=== PATIENT | male | born 1930 | race African-American/Black ===

== ENCOUNTER 2019-08-10 09:22 | Emergency (ER) | payer MEDICARE, OTHER, MEDICAID ==
[~2019-08-10] VITALS: Ht 172.7 cm; Wt 79.0 kg
[2019-08-10] MEDS ORDERED: DIPHENHYDRAMINE 50MG CAPSULE PO ONE (11:00)
[2019-08-10] MEDS ORDERED: ACETAMINOPHEN 325MG TABLET PO ONE (11:00)
[2019-08-10 14:14] VITALS: BP 122/67
== END 2019-08-10 14:43 | disposition left against medical advice (07) ==
LOC: EDBD → ER 09:22
DX: M79.18 Myalgia, other site (principal); I10 Essential (primary) hypertension; M19.90 Unspecified osteoarthritis, unspecified site; F17.210 Nicotine dependence, cigarettes, uncomplicated; Z59.0 Homelessness
CPT/HCPCS: 99283; Q0163

== ENCOUNTER 2019-08-11 13:57 | Inpatient (IN) | payer MEDICARE, MEDICAID ==
[~2019-08-11] VITALS: Ht 165.1 cm; Wt 82.1 kg
[2019-08-11 18:10] LABS: BASOPHILS % 1.1 % (0.0-2.0); EOSINOPHILS % 0.6 % (0.0-5.0); HEMATOCRIT. 32.1 % (42.0-52.0); HEMOGLOBIN. 10.8 g/dL (14.0-18.0); LYMPHOCYTES % 40.3 % (20.0-50.0); MEAN CORPUSCULAR HEMOGLOBIN 28.2 pg (28.0-32.0); MEAN CORPUSCULAR VOLUME 83.8 fL (80.0-94.0); MEAN PLATELET VOLUME 8.7 fl (7.4-10.4); PLATELET 233 x1000/uL (130-400); RED BLOOD CELL COUNT 3.83 mill/uL (4.7-6.1); RED CELL DISTRIBUTION WIDTH 16.8 % (11.6-14.6)
[2019-08-11 18:18] LABS: CHLORIDE 112 mEq/L (98-107)
[2019-08-11 18:19] LABS: PROTHROMBIN TIME 11.2 sec (9.6-11.0)
[2019-08-11 18:25] LABS: LDL CHOLESTEROL 139 mg/dL (5-100)
[2019-08-11 18:26] LABS: HDL CHOLESTEROL 58 mg/dL (40-59)
[2019-08-11 18:30] LABS: CLARITY URINE CLEAR (CLEAR); COLOR URINE YELLOW (YELLOW); KETONES URINE NEGATIVE (NEGATIVE); LEUKOCYTE ESTERASE URINE NEGATIVE (NEGATIVE); NITRITE URINE NEGATIVE (NEGATIVE); OCCULT BLOOD URINE NEGATIVE (NEGATIVE); PH URINE 5.5 (4.5-8.0); PROTEIN URINE NEGATIVE (NEGATIVE); SPECIFIC GRAVITY URINE 1.028 (1.005-1.030)
[2019-08-11] MEDS ORDERED: ONDANSETRON HCL 4MG/2ML INJ IV ONE (18:45)
[2019-08-11] MEDS ORDERED: ACETAMINOPHEN 500MG TABLET PO ONE (21:00)
[2019-08-11] MEDS ORDERED: MORPHINE SULFATE 4 MG/ML CPJ (NOT FOR IM USE) IV ONE (21:00)
[2019-08-11] MEDS ORDERED: IOHEXOL-300 100 ML BOTTLE ONE (23:28)
[2019-08-12] MEDS ORDERED: MORPHINE SULFATE 4 MG/ML CPJ (NOT FOR IM USE) IV SCH (05:00)
[2019-08-12 08:04] LABS: BASOPHILS % 1.1 % (0.0-2.0); EOSINOPHILS % 0.7 % (0.0-5.0); HEMOGLOBIN. 10.6 g/dL (14.0-18.0); MEAN CORPUSCULAR HEMOGLOBIN 27.7 pg (28.0-32.0); MEAN CORPUSCULAR VOLUME 83.6 fL (80.0-94.0); MEAN PLATELET VOLUME 8.7 fl (7.4-10.4); MONOCYTES % 10.6 % (2.0-8.0); NEUTROPHILS % 39.6 % (40.0-76.0); PLATELET 206 x1000/uL (130-400); RED BLOOD CELL COUNT 3.82 mill/uL (4.7-6.1); RED CELL DISTRIBUTION WIDTH 16.7 % (11.6-14.6)
[2019-08-12 08:09] LABS: CHLORIDE 111 mEq/L (98-107)
[2019-08-12] MEDS ORDERED: BISACODYL 5MG TABLET PO ONE (11:30)
[2019-08-12] MEDS ORDERED: ONDANSETRON HCL 4MG/2ML INJ IV PRN (11:45)
[2019-08-12 17:15] VITALS: BP 141/82
[2019-08-12] MEDS ORDERED: BISACODYL 5MG TABLET PO NR (17:30)
[2019-08-12 19:01] LABS: TOTAL IRON BINDING CAPACITY 313 ug/dL (250-450)
[2019-08-12 19:33] LABS: FOLIC ACID (FOLATE) SERUM 14.8 ng/mL (>5.38)
[2019-08-12 20:00] VITALS: BP 123/85
[2019-08-12] MEDS: ACETAMINOPHEN 325MG TABLET PO PRN (21:51)
[2019-08-12] MEDS: HEPARIN 5000 UNITS/ML VIAL SUBCUT SCH (21:53)
[2019-08-13] VITALS: BP 143/91
[2019-08-13 04:00] VITALS: BP 111/81
[2019-08-13 06:31] LABS: BASOPHILS % 0.7 % (0.0-2.0); EOSINOPHILS % 0.7 % (0.0-5.0); HEMATOCRIT. 31.8 % (42.0-52.0); HEMOGLOBIN. 10.5 g/dL (14.0-18.0); LYMPHOCYTES % 37.5 % (20.0-50.0); MEAN CORPUSCULAR HEMOGLOBIN 27.5 pg (28.0-32.0); MEAN CORPUSCULAR VOLUME 82.9 fL (80.0-94.0); MEAN PLATELET VOLUME 8.5 fl (7.4-10.4); NEUTROPHILS % 51.1 % (40.0-76.0); PLATELET 211 x1000/uL (130-400); RED BLOOD CELL COUNT 3.84 mill/uL (4.7-6.1); RED CELL DISTRIBUTION WIDTH 16.4 % (11.6-14.6)
[2019-08-13 06:58] LABS: CHLORIDE 107 mEq/L (98-107)
[2019-08-13 08:00] VITALS: BP 122/85
[2019-08-13] MEDS: ACETAMINOPHEN 325MG TABLET PO PRN (08:20)
[2019-08-13] MEDS ORDERED: BISACODYL 5MG TABLET PO PRN (09:00)
[2019-08-13] MEDS: HEPARIN 5000 UNITS/ML VIAL SUBCUT SCH ×2 (09:00→20:42)
[2019-08-13] MEDS ORDERED: AMLODIPINE 5MG TABLET PO SCH (10:00)
[2019-08-13 12:00] VITALS: BP 130/61
[2019-08-13 12:29] LABS: HEMATOCRIT 32.1 % (42.0-52.0); HEMOGLOBIN 10.7 g/dL (14.0-18.0); MEAN CORPUSCULAR HEMOGLOBIN 27.8 pg (28.0-32.0); MEAN CORPUSCULAR VOLUME 83.5 fL (80.0-94.0); PLATELET 215 x1000/uL (130-400); RED BLOOD CELL COUNT 3.84 mill/uL (4.7-6.1); RED CELL DISTRIBUTION WIDTH 16.5 % (11.6-14.6)
[2019-08-13 16:55] VITALS: BP 115/69
[2019-08-13 20:00] VITALS: BP 112/61
[2019-08-14] VITALS: BP 115/60
[2019-08-14 04:00] VITALS: BP 119/80
[2019-08-14 06:44] LABS: EOSINOPHILS % 1.2 % (0.0-5.0); HEMOGLOBIN. 10.6 g/dL (14.0-18.0); LYMPHOCYTES % 51.1 % (20.0-50.0); MEAN CORPUSCULAR HEMOGLOBIN 27.4 pg (28.0-32.0); MEAN PLATELET VOLUME 8.9 fl (7.4-10.4); MONOCYTES % 12.5 % (2.0-8.0); NEUTROPHILS % 34.2 % (40.0-76.0); PLATELET 222 x1000/uL (130-400); RED BLOOD CELL COUNT 3.86 mill/uL (4.7-6.1); RED CELL DISTRIBUTION WIDTH 15.7 % (11.6-14.6)
[2019-08-14 07:12] LABS: CHLORIDE 107 mEq/L (98-107)
[2019-08-14] MEDS ORDERED: LOSARTAN POTASSIUM 25 MG TABLET PO SCH (08:00)
[2019-08-14] MEDS ORDERED: CARVEDILOL 3.125 MG TABLET PO SCH (09:00)
[2019-08-14] MEDS ORDERED: APIXABAN 5 MG TABLET PO SCH (10:15)
[2019-08-14 12:10] VITALS: BP 127/75
[2019-08-14 14:07] VITALS: BP 127/75
== END 2019-08-14 15:15 | disposition home or self-care (01) | DRG 392 ==
LOC: EDBD 13:57 → ER 13:57 → 6WST 23:03 → EDBEDREQ 23:05 → EDBEDREQTM 23:05 → ENRESERV 08-12 11:59 → CANRESERV 08-12 11:59 → ENRESERV 08-12 12:18
PROVIDERS: ADMIT Family Medicine Adult Medicine; ATTEND Family Medicine Adult Medicine
DX: K21.9 Gastro-esophageal reflux disease without esophagitis (principal); I48.92 Unspecified atrial flutter; I50.20 Unspecified systolic (congestive) heart failure; R07.89 Other chest pain; K59.00 Constipation, unspecified; M19.90 Unspecified osteoarthritis, unspecified site; I25.2 Old myocardial infarction; I11.0 Hypertensive heart disease with heart failure; E78.5 Hyperlipidemia, unspecified; D64.9 Anemia, unspecified; I25.10 Atherosclerotic heart disease of native coronary artery without angina pectoris; I27.20 Pulmonary hypertension, unspecified
CPT/HCPCS: 36415; 71045; 74177; 78582; 80048; 80053; 80061; 81003; 82607; 82728; 82746; 83036; 83540; 83550; 83735; 84484; 85025; 85027; 93005; 93306; 97162; 99285; A9558; J1644; J2270; J2405; Q9967